=== PATIENT | male | born 1990 | race Native Hawaiian/Other Pacific Islander ===

== ENCOUNTER 2020-01-10 18:45 | Emergency (ER) | payer OTHER ==
[2020-01-10 18:53] VITALS: RESP 18; TEMP 98.1
--- NOTE | 2020-01-10 19:42 | XR ---
EXAMINATION TYPE: XR ribs RT w pa chest xray DATE OF EXAM: 01/10/2020 COMPARISON: None HISTORY: Rib pain TECHNIQUE: 5 views FINDINGS: Heart and mediastinum are normal. Lungs are clear. Diaphragm is normal. There are no hilar masses. I see no pleural effusion or pneumothorax. The right ribs appear intact. IMPRESSION: Normal chest. Normal right ribs.
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
[2020-01-10 20:15] VITALS: BP 124/90; PULSE 66
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
== END 2020-01-10 20:21 | disposition home or self-care (01) ==
LOC: EC 18:45
DX: S46.911A Strain of unspecified muscle, fascia and tendon at shoulder and upper arm level, right arm, initial encounter (principal); S29.012A Strain of muscle and tendon of back wall of thorax, initial encounter; S20.211A Contusion of right front wall of thorax, initial encounter; F17.200 Nicotine dependence, unspecified, uncomplicated; V48.0XXA Car driver injured in noncollision transport accident in nontraffic accident, initial encounter; Y93.89 Activity, other specified; Y92.410 Unspecified street and highway as the place of occurrence of the external cause
CPT/HCPCS: 72072; 99284